=== PATIENT | male | born 1960 | race Two or more races ===

== ENCOUNTER 2024-04-12 06:27 | Emergency (ER) | payer MEDICAID, OTHER ==
[~2024-04-12] VITALS: Ht 185.4 cm; Wt 120.9 kg
--- NOTE | 2024-04-12 07:28 | ED.PDOC ---
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 Tripped and landed on knees then the arms and shoulder C/o anterior right shoulder Denies fevers chills night sweats nausea vomiting redness around the shoulder Denies previous surgeries to the shoulder or significant injury Numbness/tingling down the arm Denies changes, shortness of breath Chief Complaint: Fall Injury Time Seen by MD: 07:14 Reviewed Notes: Nurses Notes, Medications, Allergies Allergies: Coded Allergies: NO KNOWN ALLERGIES (Unverified , 04/12/24) Information Source: Patient Mode of Arrival: Ambulatory Family History Family History: Reviewed,noncontributory to illness Social History Smoker: Non-Smoker Alcohol: Denies ETOH Use Drugs: Denies Drug Use All Other Systems: Reviewed and Negative (Per HPI) Physical Exam General Appearance: No Apparent Distress, Normal HEENT: Normal ENT Inspection, Pharynx Normal, TMs Normal Neck: Full Range of Motion, Non-Tender, Normal, Normal Inspection Respiratory: Chest Non-Tender, Lungs Clear, No Accessory Muscle Use, No Respiratory Distress, Normal Breath Sounds Cardiovascular: No Edema, No JVD, No Murmur, No Gallop, Normal Peripheral Pulses, Regular Rate/Rhythm Breast Exam: Deferred Gastrointestinal: No Organomegaly, Non Tender, No Pulsatile Mass, Normal Bowel Sounds, Soft Genitalia: Deferred Pelvic: Deferred Rectal: Deferred Extremities: No calf tenderness, Normal capillary refill, Normal inspection, Normal range of motion, Non-tender, No pedal edema Musculoskeletal : Location: Right Extremity Location: Shoulder (No gross abnormality on inspection. No shoulder drop visible. No clavicular tenderness on palpation. Palpation tenderness to coracoid process and acromion process. No scapular, supraspinatus, infraspinatus tenderness to touch. Limited flexion passive movement due to pain. Pain with abduction. 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 Was a procedure done?: No Differential Diagnosis EXT Differential Diagnosis: Fracture, Sprain, Dislocation X-Ray, Labs, Meds, VS Vital Signs Date Time Temp Pulse Resp B/P (MAP) Pulse Ox O2 Delivery O2 Flow Rate FiO2 04/12/24 07:51 98.0 68 16 131/72 (91) 98 98.0 04/12/24 07:51 68 16 98 Room Air 04/12/24 06:36 98.0 68 16 131/72 (91) 98 X-Ray, Labs, Meds, VS Comment History and examination consistent of muscular injury Take IBU 600 w/ food as needed for pain Recommended heat therapy Reviewed RICE management Avoid heavy lifting or strenuous activity Recommended range of motion exercises and limit heavy activity for 1 week If no improvement advised patient to return to the emergency department for follow-up. Patient is stable for discharge at this time. External notes reviewed. Test results and diagnostic imaging interpreted. All diagnostic findings, discharge care, education and instructions provided Follow-up with PCP in 2 to 3 days Patient verbalized understanding and agreed to treatment plan Vital signs stable, afebrile, no acute distress noted Patient ambulatory with strong steady gait Advised to return precautions for any new or worsening symptoms, return to ER immediately for re-evaluation Patient is aware that the purpose of this visit was for an acute medical emergency requiring emergent stabilization. Chronic conditions, including malignancies have not been ruled out. Patient is instructed to follow up with PCP as directed and discharge instructions for continued care and workup. If unable to arrange follow-up, patient is to return to the emergency department for reassessment. Patient (parent or legal guardian if applicable) was given verbal and written discharge instructions and acknowledges understanding. Time of 1ST Reevaluation: 08:30 Reevaluation 1ST: Improved Patient Education/Counseling: Diagnosis, Treatment Family Education/Counseling: Diagnosis, Treatment Departure 1 Departure Time of Disposition: 08:31 Impression: Primary Impression: Acute shoulder pain due to trauma Qualified Codes: M25.511 - Pain in right shoulder; G89.11 - Acute pain due to trauma Additional Impression: Post-traumatic osteoarthritis, right shoulder Disposition: 01 HOME / SELF CARE / HOMELESS Condition: Stable Discharged With: Self Critical Care Note Critical Care Time?: No Stability Stability form required: No Heart Score Heart Score: Heart Score Response (Comments) Value History N/A 0 EKG N/A 0 Age N/A 0 Risk Factors N/A 0 Troponin N/A 0 Total 0 RAMESH MAE NP Apr 12, 2024 07:28
[2024-04-12 07:51] VITALS: BP 131/72; PULSE 68; RESP 16; TEMP 98; O2SAT 98
--- NOTE | 2024-04-12 08:18 | DVH ---
CLINICAL INFORMATION: 64 years old, Male; fall injury. Pain. TECHNIQUE: Axial CT images of the right shoulder were obtained without IV contrast. Coronal and sagit ryan reformatted images were obtained, reviewed, and stored. All CT scans at this medical facility are performed using dose modulation techniques as appropriate to a performed exam including the follo wing: Automated exposure control was utilized; adjustment of the MA and/or KV according to patient si ze; and use of iterative reconstruction technique. CTDIvol = 34.87 mGy DLP = 960.84 mGy-cm COMPARISON: None FINDINGS: No acute fracture or dislocation. [id number] arthritic changes at the acromioclavicul ar joint and glenohumeral joint. No significant soft tissue abnormality identified. Visualized muscul ature appears grossly unremarkable. No abnormality identified in the visualized portions of the right lung. IMPRESSION: 1. No evidence of acute bony abnormality. 2. Arthritic changes as described above.
== END 2024-04-12 08:44 | disposition home or self-care (01) ==
LOC: ER 06:27
DX: M19.111 Post-traumatic osteoarthritis, right shoulder (principal); M25.511 Pain in right shoulder; W01.0XXA Fall on same level from slipping, tripping and stumbling without subsequent striking against object, initial encounter; Y93.89 Activity, other specified; Y92.89 Other specified places as the place of occurrence of the external cause; Y99.8 Other external cause status
CPT/HCPCS: 73200